=== PATIENT | male | born 1985 | race Hispanic/Latino ===

== ENCOUNTER 2021-08-27 18:42 | Emergency (ER) | payer OTHER ==
[~2021-08-27] VITALS: Ht 167.6 cm; Wt 124.7 kg
[2021-08-27] MEDS ORDERED: TETANUS/DIPHTHERIA TOX ADULT 0.5 ML SYR IM ONE (19:00)
[2021-08-27] MEDS ORDERED: TETRACAINE HCL 0.5% OPTH SOLN 4 ML BTL OP ONE (19:15)
[2021-08-27] MEDS ORDERED: TOBRAMYCIN 0.3% OPTH OINT 3.5 GM TUBE OP ONE (19:15)
== END 2021-08-27 20:15 | disposition home or self-care (01) ==
LOC: ER 19:46
DX: T20.49XA Corrosion of unspecified degree of multiple sites of head, face, and neck, initial encounter (principal); H10.9 Unspecified conjunctivitis; T65.891A Toxic effect of other specified substances, accidental (unintentional), initial encounter; Y92.512 Supermarket, store or market as the place of occurrence of the external cause
CPT/HCPCS: 90471; 90714; 99282